=== PATIENT | male | born 1975 | race Caucasian/White ===

== ENCOUNTER 2017-02-02 00:13 | Emergency (ER) | payer OTHER ==
[2017-02-02 00:29] VITALS: TEMP 97.8; BMI 32.6
--- NOTE | 2017-02-02 01:09 | ED PDOC ---
Arrival/HPI - General Chief Complaint: Medical Clearance Time Seen by Provider: 02/02/17 00:28 Historian: Patient - History of Present Illness Narrative History of Present Illness (Text): 02/02/17 00:30 Selvin Rogers is a 41 year old male, whose past medical history includes anxiety and hypertension, who presents to the emergency department complaining of palpitations and anxiety for a few hours. Patient notes that his brother is the patient who coded from an overdose. Patient states that his symptoms are similar to his past anxiety attacks. Patient also indicated that he has feels dryness in his mouth. He notes that he has been taking Xanax twice a day and Metoprolol. Patient denies shortness of breath, chest pain, productive cough, nausea, vomiting, or any other complaints at this time. Time/Duration: 1-3 hours Symptom Course: Unchanged Activities at Onset: Light Context: Home Past Medical History - Provider Review Nursing Documentation Reviewed: Yes - Cardiac Hx Cardiac Disorders: No Hx Hypertension: Yes - Pulmonary Hx Respiratory Disorders: No - Neurological Hx Neurological Disorder: No - HEENT Hx HEENT Disorder: No - Renal Hx Renal Disorder: Yes Hx Kidney Stones: Yes (PASSED WITHOUT INTERVENTION) - Endocrine/Metabolic Hx Endocrine Disorders: No - Hematological/Oncological Hx Blood Disorders: No - Integumentary Hx Dermatological Disorder: Yes (OR-WASH OUT OF RIGHT ANKLE WOUND ON 07/31/14) - Musculoskeletal/Rheumatological Hx Musculoskeletal Disorders: Yes Hx Arthritis: Yes Hx Back Pain: Yes Hx Falls: No 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 - Anesthesia Hx Anesthesia: Yes Hx Anesthesia Reactions: No Hx Malignant Hyperthermia: No Family/Social History - Physician Review Nursing Documentation Reviewed: Yes Family/Social History: No Known Family HX Smoking Status: Former Smoker Hx Alcohol Use: No Hx Substance Use: No Allergies/Home Meds Allergies/Adverse Reactions: Allergies atorvastatin [From Lipitor] Allergy (Verified 02/02/17 00:28) RASH Home Medications: Home Meds Medication Instructions Recorded Confirmed Alprazolam [Xanax] 1 mg PO BID 06/09/14 02/02/17 Acetaminophen/Oxycodone Hydr 1 tab PO TID 09/09/14 02/02/17 [Percocet 10/325 mg Tab] Review of Systems - Physician Review All systems were reviewed & negative as marked: Yes - Review of Systems Constitutional: absent: Fevers, Night Sweats Eyes: absent: Vision Changes ENT: absent: Hearing Changes Respiratory: absent: SOB Cardiovascular: Palpitations. absent: Chest Pain Musculoskeletal: absent: Arthralgias Skin: absent: Rash Neurological: absent: Headache Psychiatric: Anxiety Physical Exam Vital Signs Reviewed: Yes Vital Signs Temp Pulse Resp BP Pulse Ox 02/02/17 00:28 97.8 F 115 H 20 153/94 H 98 Temperature: Afebrile Blood Pressure: Hypertensive Pulse: Tachycardic Respiratory Rate: Normal Appearance: Positive for: Other (Anxious) Mental Status: Positive for: Alert and Oriented X 3 - Systems Exam Head: Present: Atraumatic, Normocephalic Pupils: Present: PERRL Extroacular Muscles: Present: EOMI Conjunctiva: Present: Normal Mouth: Present: Moist Mucous Membranes Neck: Present: Normal Range of Motion Respiratory/Chest: Present: Clear to Auscultation, Good Air Exchange. No: Respiratory Distress, Accessory Muscle Use Cardiovascular: Present: Normal S1, S2, Tachycardic Abdomen: Present: Normal Bowel Sounds. No: Tenderness, Distention, Peritoneal Signs Back: Present: Normal Inspection Upper Extremity: Present: Normal Inspection. No: Cyanosis, Edema Lower Extremity: Present: Normal Inspection. No: Edema Neurological: Present: GCS=15, CN II-XII Intact, Speech Normal Skin: Present: Warm, Dry, Normal Color. No: Rashes Psychiatric: Present: Anxious Medical Decision Making ED Course and Treatment: 02/02/17 00:30 Impression: 41 year old male complaining of palpitations and anxiety tonight. Differential Diagnosis included but are not limited to: Dehydration vs. Anxiety attack (most lilkely) vs. SVT Plan: -- Ativan -- Reassess and disposition Progress Notes: EKG: Ordered, reviewed, and independently interpreted the EKG. Rate : 110 BPM Rhythm : Sinus tachycardia Interpretation : No ST-segment elevations or depressions, no T-wave inversions, normal intervals. Comparison : No previous EKG for comparison. Reassessment Condition: Re-examined - Medication Orders Current Medication Orders: Discontinued Medications Lorazepam (Ativan) 1 mg PO ONCE ONE PRN Reason: Protocol Stop: 02/02/17 01:03 - Scribe Statement The provider has reviewed the documentation as recorded by the [place] Real Provider Scribe Attestation: All medical record entries made by the Scribe were at my direction and personally dictated by me. I have reviewed the chart and agree that the record accurately reflects my personal performance of the history, physical exam, medical decision making, and the department course for this patient. I have also personally directed, reviewed, and agree with the discharge instructions and disposition. Disposition/Present on Arrival - Present on Arrival Any Indicators Present on Arrival: No History of DVT/PE: No History of Uncontrolled Diabetes: No Urinary Catheter: No History of Decub. Ulcer: No History Surgical Site Infection Following: None - Disposition Have Diagnosis and Disposition been Completed?: Yes Diagnosis: Anxiety Disposition: HOME/ ROUTINE Disposition Time: 02:01 Patient Plan: Discharge Patient Problems: Current Active Problems Problem Status Onset Anxiety Acute Condition: IMPROVED Discharge Instructions (ExitCare): Generalized Anxiety Disorder (ED) Forms: [employer] (Telugu)
[2017-02-02 03:41] VITALS: BP 142/82; PULSE 74; RESP 16; O2SAT 99
--- NOTE | 2017-02-02 23:00 | CARD ---
APPROVED REPORT EKG Measurement Heart [id number] <Conclusion> Sinus tachycardia Otherwise normal ECG
== END 2017-02-02 02:05 | disposition home or self-care (01) ==
LOC: ED 00:13
DX: F41.1 Generalized anxiety disorder (principal); I10 Essential (primary) hypertension; Z87.891 Personal history of nicotine dependence